=== PATIENT | male | born 1965 | race Caucasian/White ===

== ENCOUNTER 2022-01-16 13:16 | Emergency (ER) | payer OTHER ==
[~2022-01-16] VITALS: Ht 175.3 cm; Wt 113.0 kg
[2022-01-16] MEDS ORDERED: IBUPROFEN 400MG TABLET PO ONE (18:00)
[2022-01-16 19:12] VITALS: BP 137/97
== END 2022-01-16 19:13 | disposition home or self-care (01) ==
LOC: ER 13:16
DX: S33.5XXA Sprain of ligaments of lumbar spine, initial encounter (principal); S63.502A Unspecified sprain of left wrist, initial encounter; S93.401A Sprain of unspecified ligament of right ankle, initial encounter; V49.9XXA Car occupant (driver) (passenger) injured in unspecified traffic accident, initial encounter; Y93.89 Activity, other specified; Y92.89 Other specified places as the place of occurrence of the external cause; Y99.8 Other external cause status
CPT/HCPCS: 71046; 73100; 73600; 99284